=== PATIENT | male | born 1955 | race Caucasian/White ===

== ENCOUNTER 2016-10-27 18:17 | Emergency (ER) | payer BC ==
[~2016-10-27] VITALS: Ht 185.4 cm; Wt 93.0 kg
[~2016-10-27 18:17] MED LIST: ADVIL,NUPRIN,M200 MG PO; ASPIR 8181 M1 PO; COZAAR25 MG PO; ERGOCALCIF50000 UNIT PO; ERYPED 400400 MG/5 M PO; FISH OIL 1,0001 EA10 PO; HYDROXYCHLOROQ200 MG PO; HYZAAR 50-121 TABLET PO; IRON325 M1 PO; LO-DOSE ASPIRIN81 M2 PO; MAGNESIUM400 M1 PO; MOTRIN600 MG PO; OXAYDO5 MG PO; PANTOPRAZOLE SO40 MG PO; PREDNISONE10 MG PO; PROTONIX40 M1 PO; REGLAN10 MG PO
[2016-10-27 18:47] LABS: HEMATOCRIT 46.3 % (38.0-50.0); MCH 28.1 PG (29.0-34.0); PLATELET COUNT 104 K/uL (156-360); RBC DIS.WIDTH-CV 13.7 % (11.8-14.6); RED BLOOD COUNT 5.45 M/uL (4.00-5.50)
[2016-10-27 19:10] LABS: CHLORIDE 104 mEq/L (99-109); POTASSIUM 3.5 mEq/L (3.7-5.4); SODIUM 140 mEq/L (136-147)
[2016-10-27 19:13] LABS: GLUCOSE 139 mg/dL (70-99)
[2016-10-27 19:14] LABS: ANION GAP 10 MEQ/L (2-14)
[2016-10-27 19:15] LABS: TOTAL BILIRUBIN 2.1 mg/dL (0.0-1.0); TROP-I INTERPRETATION NEGATIVE; TROPONIN-I 0.01 ng/mL (0.0-0.30)
[2016-10-27 19:16] LABS: ALKALINE PHOSPHATASE 37 IU/L (3-129); GFR ESTIMATE (CALCULATED) > 59 mL/min/
[2016-10-27 19:17] LABS: UREA NITROGEN (BUN) 23 mg/dL (9-23)
[2016-10-27 19:18] LABS: DIRECT BILIRUBIN 0.8 mg/dL (0.0-0.3)
[2016-10-27 19:20] LABS: LIPASE 5 U/L (1.0-51.0)
[2016-10-27 23:35] VITALS: BP 121/65
== END 2016-10-27 23:39 | disposition designated cancer center or children's hospital, planned readmission (85) ==
LOC: EME 18:17
DX: K80.50 Calculus of bile duct without cholangitis or cholecystitis without obstruction (principal); R07.9 Chest pain, unspecified; I10 Essential (primary) hypertension; Z85.6 Personal history of leukemia
CPT/HCPCS: 71020; 71275; 74177; 80048; 80076; 83690; 84484; 85027; 93005; 99281; 99285; J2270; J2405; J7030

== ENCOUNTER 2017-05-19 11:41 | Day surgery (SDC) | payer BC ==
[~2017-05-19] VITALS: Ht 182.9 cm; Wt 93.2 kg
[~2017-05-19 11:41] MED LIST changes: +LEVAQUIN750 MG PO
[2017-05-19 12:15] VITALS: BP 131/75
[2017-05-19 15:30] VITALS: BP 155/73
[2017-05-19 16:25] VITALS: BP 116/68
== END 2017-05-19 16:25 | disposition home or self-care (01) ==
LOC: SDC 11:41
DX: S80.12XA Contusion of left lower leg, initial encounter (principal); S81.802A Unspecified open wound, left lower leg, initial encounter; S82.402A Unspecified fracture of shaft of left fibula, initial encounter for closed fracture; L08.9 Local infection of the skin and subcutaneous tissue, unspecified; W20.8XXA Other cause of strike by thrown, projected or falling object, initial encounter; Y93.H1 Activity, digging, shoveling and raking; Y92.007 Garden or yard of unspecified non-institutional (private) residence as the place of occurrence of the external cause; I10 Essential (primary) hypertension; C91.11 Chronic lymphocytic leukemia of B-cell type in remission; K21.9 Gastro-esophageal reflux disease without esophagitis
CPT/HCPCS: 87070; 87075; 87077; 87186; 87205; J0744; J1100; J1170; J2405; J2765; J3010; J7120; S0020